=== PATIENT | female | born 1990 ===

== ENCOUNTER 2016-12-14 14:39 | Emergency (ER) | payer OTHER ==
[2016-12-14 14:53] VITALS: RESP 18
--- NOTE | 2016-12-14 15:34 | C.PDOC ---
History Of Present Illness 26-year-old female, presents to the emergency department with complaints of pelvic pain x3 days. Patient denies vaginal bleed, nausea/vomiting, or any other associated symptoms. No other complaints at this time. Time Seen by Provider: 12/14/16 15:03 Chief Complaint (Nursing): Abdominal Pain History Per: Patient History/Exam Limitations: no limitations Past Medical History Reviewed: Historical Data, Nursing Documentation, Vital Signs Vital Signs: Last Vital Signs Temp 97.9 F 12/14/16 14:51 Pulse 60 12/14/16 14:51 Resp 18 12/14/16 14:51 BP 119/72 12/14/16 14:51 Pulse Ox 99 12/14/16 19:16 Family History: States: Unknown Family Hx - Social History Hx Alcohol Use: No Hx Substance Use: No - Immunization History Hx Tetanus Toxoid Vaccination: No Hx Influenza Vaccination: No Hx Pneumococcal Vaccination: No Review Of Systems Except As Marked, All Systems Reviewed And Found Negative. Constitutional: Negative for: Fever, Chills Cardiovascular: Negative for: Chest Pain Respiratory: Negative for: Shortness of Breath Gastrointestinal: Positive for: Abdominal Pain. Negative for: Nausea, Vomiting Musculoskeletal: Negative for: Back Pain Skin: Negative for: Rash Neurological: Negative for: Weakness, Numbness Physical Exam - Physical Exam Appears: Non-toxic, No Acute Distress Skin: Normal Color, Warm, Dry Head: Atraumatic, Normacephalic Eye(s): bilateral: Normal Inspection, PERRL, EOMI Nose: Normal Neck: Normal ROM Cardiovascular: Rhythm Regular Respiratory: No Accessory Muscle Use Gastrointestinal/Abdominal: Soft, Tenderness (LEFT SIDED), No Guarding, No Rebound Back: Normal Inspection Extremity: Normal ROM ED Course And Treatment - Laboratory Results Result Diagrams: 12/14/16 17:01 12/14/16 17:01 O2 Sat by Pulse Oximetry: 99 - CT Scan/US US PELVIS Other Rad Studies (CT/US): Read By Radiologist, Radiology Report Reviewed Progress Note: Accession No. : [id number]. Patient Name / ID : CONNIE TAY / [id number]. Exam Date : 12/14/2016 18:27:16 ( Approved ). Study Comment : Sex / Age : F / 26Y. Creator : Tucker Shelton. Dictator : Tucker Shelton. Beet End Supervisor : Fat Purification Worker : Tucker Shetlon. Approver2 : Report Date : 12/14/2016 18:46:54. My Comment : . HISTORY: left pelvic pain. COMPARISON: Comparison is made to the previous CT of the abdomen and pelvis dated 09/11/2016. TECHNIQUE: Transabdominal and endovaginal ultrasound examination of the pelvis was performed. FINDINGS: UTERUS: Measures 7.2 x 3.4 x 3.7 cm. Normal in size and appearance. No fibroid or other mass lesion seen. Small nabothian cyst seen. ENDOMETRIUM: Measures 8.1 mm in diameter. Unremarkable. CERVIX: No cervical abnormality identified. The cervix measures 2.7. RIGHT OVARY: Measures 3.3 x 2.2 x 3.7 cm. No solid mass. Normal flow. LEFT OVARY: Measures 2.9 x 2.2 x 2.6 cm. No solid mass. Normal flow. FREE FLUID: No significant free fluid noted. OTHER FINDINGS: None. IMPRESSION: No evidence of acute pathology in the uterus and ovaries. Disposition - Disposition Referrals: [facility] at [facility] [Outside] [facility] [Outside] Disposition: HOME/ ROUTINE Disposition Time: 19:16 Condition: STABLE Additional Instructions: Follow up with PMD within 1-2 days. return to Ed if feel worse. Prescriptions: Ibuprofen [Motrin Tab] 600 mg PO Q8 #30 tab traMADol [Ultram] 50 mg PO Q6 #30 tab Instructions: Pelvic Pain in Women (ED) - Clinical Impression Clinical Impression: Pelvic pain - Scribe Statement The provider has reviewed the documentation as recorded by the Germaine Segundo All medical record entries made by the Evaibparish were at my direction and personally dictated by me. I have reviewed the chart and agree that the record accurately reflects my personal performance of the history, physical exam, medical decision making, and the department course for this patient. I have also personally directed, reviewed, and agree with the discharge instructions and disposition.
[2016-12-14 16:30] LABS: RBC URINE 1 /hpf (0-3); TRANSITIONAL EPITHIAL < 1 /hpf (0-3); URINE BACTERIA RARE (<OCC); URINE BILIRUBIN NEGATIVE (NEGATIVE); URINE BLOOD NEGATIVE (NEGATIVE); URINE COLOR Yellow (YELLOW); URINE GLUCOSE (UA) NORMAL (Normal); URINE KETONE NEGATIVE (NEGATIVE); URINE LEUKOCYTE ESTERASE NEG Leu/uL (Negative); URINE PROTEIN NEGATIVE (NEGATIVE); URINE UROBILINOGEN NORMAL mg/dL (0.2-1.0); WBC URINE 1 /hpf (0-5)
[2016-12-14 17:05] LABS: BASO % 0.8 % (0.0-2.0); EOS % 0.9 % (0.0-4.0); HEMATOCRIT 42.5 % (34.0-47.0); LYMPH % 42.2 % (20.0-40.0); MEAN CELL VOLUME 90.2 fL (81.0-99.0); MEAN CORPUSCULAR HEMOGLOBIN 30.4 pg (27.0-31.0); MEAN CORPUSCULAR HGB CONC 33.7 g/dL (33.0-37.0); MONO # 0.4 K/uL (0.0-0.8); MONO % 8.8 % (0.0-10.0); NRBC % 0.1 % (0.0-2.0); RED CELL DISTRIBUTION WIDTH 13.8 % (11.5-14.5); WHITE BLOOD COUNT 4.7 K/uL (4.8-10.8)
[2016-12-14 17:11] LABS: CHLORIDE 101 mmol/L (98-107)
[2016-12-14 17:12] LABS: POTASSIUM 3.9 mmol/L (3.6-5.2); SODIUM 139 mmol/L (132-148)
[2016-12-14 17:14] LABS: ALB/GLOB RATIO 1.2 (1.0-2.1); AST/SGOT 28 U/L (14-36); BILIRUBIN,TOTAL 0.6 mg/dL (0.2-1.3); BLOOD UREA NITROGEN 10 mg/dL (7-17); CARBON DIOXIDE 27 mmol/L (22-30); GFR AFRICAN-AMERICAN > 60; TOTAL PROTEIN 7.8 g/dL (6.3-8.3)
[2016-12-14 17:15] LABS: ALKALINE PHOSPHATASE 97 U/L (38-126); ALT/SGPT 33 U/L (9-52); CALCIUM 8.5 mg/dl (8.6-10.4); GLUCOSE,RANDOM 95 mg/dL (65-105)
--- NOTE | 2016-12-14 18:48 | US ---
HISTORY: left pelvic pain COMPARISON: Comparison is made to the previous CT of the abdomen and pelvis dated 09/11/2016 TECHNIQUE: Transabdominal and endovaginal ultrasound examination of the pelvis was performed. FINDINGS: UTERUS: Measures 7.2 x 3.4 x 3.7 cm. Normal in size and appearance. No fibroid or other mass lesion seen. Small nabothian cyst seen. ENDOMETRIUM: Measures 8.1 mm in diameter. Unremarkable. CERVIX: No cervical abnormality identified. The cervix measures 2.7 RIGHT OVARY: Measures 3.3 x 2.2 x 3.7 cm. No solid mass. Normal flow. LEFT OVARY: Measures 2.9 x 2.2 x 2.6 cm. No solid mass. Normal flow. FREE FLUID: No significant free fluid noted. OTHER FINDINGS: None. IMPRESSION: No evidence of acute pathology in the uterus and ovaries.
[2016-12-14 19:21] VITALS: BP 106/69; PULSE 59; TEMP 97.7
[2016-12-15 09:31] VITALS: O2SAT 99
== END 2016-12-14 19:21 | disposition home or self-care (01) ==
LOC: C.ER 14:39
DX: R10.2 Pelvic and perineal pain (principal)
CPT/HCPCS: 76830; 76856; 80053; 81001; 84703; 85025; 96374; 99285; J1885

== ENCOUNTER 2017-03-29 15:32 | Emergency (ER) | payer OTHER ==
[2017-03-29 15:37] VITALS: BP 111/74; PULSE 57; RESP 18; TEMP 97.9; O2SAT 99
[2017-03-29] MEDS ORDERED: Naproxen 550 mg Tab PO STA (16:03)
[2017-03-29] MEDS ORDERED: Naproxen 550 mg Tab PO ONE (16:06)
--- NOTE | 2017-03-29 16:26 | RAD ---
HISTORY: right sided chest/rib pain COMPARISON: None available. TECHNIQUE: Chest PA and lateral FINDINGS: LUNGS: No focal consolidation. Please note that chest x-ray has limited sensitivity for the detection of pulmonary masses. PLEURA: No significant pleural effusion identified. No definite pneumothorax . CARDIOVASCULAR: The cardiomediastinal silhouette appears within normal limits of size. OSSEOUS STRUCTURES: No acute osseous abnormality identified. VISUALIZED UPPER ABDOMEN: Unremarkable. OTHER FINDINGS: None. IMPRESSION: No focal consolidation, significant pleural effusion, or definite pneumothorax identified.
[2017-03-29 16:40] LABS: RBC URINE 2 /hpf (0-3); URINE BACTERIA RARE (<OCC); URINE BILIRUBIN NEGATIVE (NEGATIVE); URINE BLOOD NEGATIVE (NEGATIVE); URINE COLOR Yellow (YELLOW); URINE GLUCOSE (UA) NORMAL (Normal); URINE KETONE NEGATIVE (NEGATIVE); URINE LEUKOCYTE ESTERASE NEG Leu/uL (Negative); URINE PROTEIN NEGATIVE (NEGATIVE); URINE UROBILINOGEN NORMAL mg/dL (0.2-1.0); WBC URINE 1 /hpf (0-5)
--- NOTE | 2017-03-29 17:06 | C.PDOC ---
History Of Present Illness 26 year old female presents to the ED for evaluation of right sided lateral rib pain, which she describes as sharp. Pain is also pleuritic, worsens with deep breaths. She also reports left sided neck pain; states both her symptoms have been present for approximately for one month. She denies cough, fever, chest pain, shortness of breath, abdominal pain, dysuria/hematuria. Time Seen by Provider: 03/29/17 15:45 Chief Complaint (Nursing): Upper Extremity Problem/Injury History Per: Patient History/Exam Limitations: no limitations Onset/Duration Of Symptoms: Days Current Symptoms Are (Timing): Still Present Severity: Mild Past Medical History Reviewed: Historical Data, Nursing Documentation, Vital Signs Vital Signs: Last Vital Signs Temp 97.9 F 03/29/17 15:35 Pulse 57 L 03/29/17 15:35 Resp 18 03/29/17 15:35 BP 111/74 03/29/17 15:35 Pulse Ox 99 03/29/17 18:32 - Medical History PMH: No Chronic Diseases Surgical History: No Surg Hx Family History: States: No Known Family Hx - Social History Hx Alcohol Use: No Hx Substance Use: No - Immunization History Hx Tetanus Toxoid Vaccination: No Hx Influenza Vaccination: No Hx Pneumococcal Vaccination: No Review Of Systems Except As Marked, All Systems Reviewed And Found Negative. Constitutional: Negative for: Fever, Chills Cardiovascular: Positive for: Other (right sided lateral rib pain). Negative for: Chest Pain Respiratory: Negative for: Cough, Shortness of Breath Gastrointestinal: Negative for: Nausea, Vomiting, Abdominal Pain Musculoskeletal: Positive for: Neck Pain Skin: Negative for: Rash Physical Exam - Physical Exam Appears: Well, Non-toxic, No Acute Distress Skin: Other (speaking in full sentences) Oral Mucosa: Moist Neck: Other (tenderness to palpation of left lateral neck, along lower trapezius ) Cardiovascular: Rhythm Regular, Other (right lateral rib tenderness to palpation apprix ribs 5/6 level; no rash, no crepitus) Respiratory: Normal Breath Sounds, No Rales, No Rhonchi, No Wheezing Gastrointestinal/Abdominal: Normal Exam, Bowel Sounds, Soft, No Tenderness Back: Normal Inspection, No CVA Tenderness, No Vertebral Tenderness Extremity: Bilateral: Atraumatic, Normal Color And Temperature, Normal ROM Neurological/Psych: Oriented x3, Normal Motor, Normal Sensation Gait: Steady ED Course And Treatment O2 Sat by Pulse Oximetry: 99 (RA) Pulse Ox Interpretation: Normal - Radiology CXR: Interpreted by Me, Viewed By Me CXR Interpretation: Yes: No Acute Disease. No: Infiltrates Progress Note: UA, Upreg and CXR ordered and reviewed. Patient given PO Naprosyn and Flexeril. Reevaluation Time: 17:05 Reassessment Condition: Improved (Patient reassessed, is currently resting comfortably, states her pain has improved. CXR, UA, Upreg (-). Patient given Rx for Naprosyn and Flexeril, and instructed to follow up with PMD/clinic in 1- 2 days. She understands she should return to ED if symptoms worsen.) Disposition Counseled Patient/Family Regarding: Diagnosis, Need For Followup, Rx Given - Disposition Referrals: [facility] at [facility] [Outside] Disposition: HOME/ ROUTINE Disposition Time: 17:05 Condition: STABLE Additional Instructions: SEGUIMIENTO CON LA CLNICA MDICA EN 1-2 TEJEDA USE LOS MEDICAMENTOS QUE TIMOTHY NECESARIOS PARA EL DOLOR DEVUELVA A LA FRANDY DE EMERGENCIA SI LOS SNTOMAS EMPEORARAN Prescriptions: Naproxen [Naprosyn Tab] 375 mg PO BID PRN #20 tab PRN Reason: pain Instructions: Costochondritis (ED) Forms: [employer] (Maltese) Print Language: DANISH - POA Present On Arrival: None - Clinical Impression Clinical Impression: Costochondritis, acute - Scribe Statement The provider has reviewed the documentation as recorded by the Evaibparish Bolden Provider Attestation: Provider Attestation: All medical record entries made by the Scribe were at my direction and personally dictated by me. I have reviewed the chart and agree that the record accurately reflects my personal performance of the history, physical exam, medical decision making, and the department course for this patient. I have also personally directed, reviewed, and agree with the discharge instructions and disposition.
== END 2017-03-29 17:18 | disposition home or self-care (01) ==
LOC: C.ER 15:32
DX: M94.0 Chondrocostal junction syndrome [Tietze] (principal)

== ENCOUNTER 2017-04-19 17:58 | Emergency (ER) | payer OTHER ==
[2017-04-19 18:03] VITALS: BMI 30.9
[2017-04-19 18:04] VITALS: TEMP 98
--- NOTE | 2017-04-19 19:18 | C.PDOC ---
History Of Present Illness 26 yr old female presents to the ER stating today around 5:30pm she tripped and fell while waking down the stairs and twisted the right ankle. Patient states she is able to ambulate but has pain. Denies complete fall, leg pain, weakness or numbness. Time Seen by Provider: 04/19/17 18:17 Chief Complaint (Nursing): Lower Extremity Problem/Injury History Per: Patient History/Exam Limitations: no limitations Onset/Duration Of Symptoms: Hrs Past Medical History Reviewed: Historical Data, Nursing Documentation, Vital Signs Vital Signs: Last Vital Signs Temp 98 F 04/19/17 18:03 Pulse 78 04/19/17 20:16 Resp 16 04/19/17 20:16 BP 119/75 04/19/17 20:16 Pulse Ox 96 04/19/17 20:32 Family History: States: No Known Family Hx - Social History Hx Alcohol Use: No Hx Substance Use: No - Immunization History Hx Tetanus Toxoid Vaccination: No Hx Influenza Vaccination: No Hx Pneumococcal Vaccination: No Review Of Systems Except As Marked, All Systems Reviewed And Found Negative. Musculoskeletal: Positive for: Other ((+) Right ankle pain.). Negative for: Leg Pain Neurological: Negative for: Weakness, Numbness Physical Exam - Physical Exam Appears: Non-toxic, No Acute Distress Skin: Warm, Dry, No Rash Head: Atraumatic, Normacephalic Oral Mucosa: Moist Extremity: No Calf Tenderness, Capillary Refill (<2), Other (Right Ankle - Swelling to the inferior malleolus. Tenderness to the lateral tib/fib area.) Neurological/Psych: Oriented x3, Normal Speech, Normal Motor ED Course And Treatment O2 Sat by Pulse Oximetry: 96 (RA) Pulse Ox Interpretation: Normal Medical Decision Making Medical Decision Making: PLAN: * X-Ray - Right Tibia & Fibula, Right Ankle, Right Foot * Tylenol PO xrays are negative for acute fracture or dislocation. Air cast and crutches applied and patient was instructed to follow up with Ortho. Disposition - Disposition Referrals: Maritza Segundo MD [Staff Provider] - Disposition: HOME/ ROUTINE Disposition Time: 19:18 Condition: GOOD Additional Instructions: Follow up with the medical doctor within 1-2 days. Return if worsened. Prescriptions: Ibuprofen [Motrin] 600 mg PO TID #21 tab Instructions: Ankle Sprain (ED) Forms: [employer] (American), School Excuse - Clinical Impression Clinical Impression: Ankle sprain - PA / PL SQL PROGRAMMER / Resident Statement MD/DO has reviewed & agrees with the documentation as recorded. - Scribe Statement The provider has reviewed the documentation as recorded by the Scribe Mireya Mccann All medical record entries made by the Scribe were at my direction and personally dictated by me. I have reviewed the chart and agree that the record accurately reflects my personal performance of the history, physical exam, medical decision making, and the department course for this patient. I have also personally directed, reviewed, and agree with the discharge instructions and disposition.
[2017-04-19 20:17] VITALS: BP 119/75; PULSE 78; RESP 16
[2017-04-19 20:29] VITALS: O2SAT 96
--- NOTE | 2017-04-20 11:17 | RAD ---
PROCEDURE: Right Ankle Radiographs. HISTORY: ankle injury AND PAIN COMPARISON: None FINDINGS: BONES: Normal. No fracture. JOINTS: Normal. No osteoarthritis. Ankle mortise maintained. Talar dome intact SOFT TISSUES: Mild lateral malleolar soft tissue edema is identified. OTHER FINDINGS: None. IMPRESSION: No acute fracture dislocation. Mild right lateral malleolar soft tissue edema is identified.
--- NOTE | 2017-04-20 11:18 | RAD ---
PROCEDURE: Right Foot Radiographs. HISTORY: FOOT INJURY COMPARISON: None. FINDINGS: BONES: Normal. No fracture. JOINTS: Normal. SOFT TISSUES: Normal. OTHER FINDINGS: None. IMPRESSION: Normal right foot radiographs.
--- NOTE | 2017-04-20 11:18 | RAD ---
PROCEDURE: Radiographs of the right tibia and fibula. HISTORY: pain to mid tib/fib COMPARISON: None available. TECHNIQUE: Frontal and lateral views obtained. FINDINGS: BONES: No fracture or destructive lesion. JOINT SPACES: Unremarkable. OTHER FINDINGS: None. IMPRESSION: Unremarkable radiographs of the right tibia and fibula.
== END 2017-04-19 20:16 | disposition home or self-care (01) ==
LOC: C.ER 17:58
DX: S93.401A Sprain of unspecified ligament of right ankle, initial encounter (principal); W10.8XXA Fall (on) (from) other stairs and steps, initial encounter; Y93.89 Activity, other specified; Y92.89 Other specified places as the place of occurrence of the external cause

== ENCOUNTER 2017-05-07 13:09 | Emergency (ER) | payer OTHER ==
[2017-05-07 13:09] VITALS: BMI 30.9
[2017-05-07 13:14] VITALS: PULSE 66; TEMP 98.5
[2017-05-07 13:47] LABS: RBC URINE < 1 /hpf (0-3); URINE BILIRUBIN NEGATIVE (NEGATIVE); URINE BLOOD NEGATIVE (NEGATIVE); URINE COLOR Yellow (YELLOW); URINE GLUCOSE (UA) NORMAL (Normal); URINE KETONE NEGATIVE (NEGATIVE); URINE LEUKOCYTE ESTERASE NEG Leu/uL (Negative); URINE PROTEIN NEGATIVE (NEGATIVE); URINE UROBILINOGEN NORMAL mg/dL (0.2-1.0); WBC URINE 1 /hpf (0-5)
[2017-05-07] MEDS ORDERED: cefTRIAXone (Rocephin) 250 mg Inj IM STA (14:16)
--- NOTE | 2017-05-07 14:32 | C.PDOC ---
Time Seen by Provider: 05/07/17 13:18 Chief Complaint (Nursing): Abdominal Pain History Per: Patient Onset/Duration Of Symptoms: Days (around 5), Waxing/Waning Current Symptoms Are (Timing): Still Present Severity: Moderate Location Of Pain/Discomfort: Suprapubic Quality Of Discomfort: Unable To Describe, "Pain" Associated Symptoms: Other (Vaginal discharge) Alleviating Factors: None Additional History Per: Prior Records Last Menstral Period: February 2017 Past Medical History Reviewed: Historical Data, Nursing Documentation, Vital Signs Vital Signs: Last Vital Signs Temp 98.5 F 05/07/17 13:12 Pulse 66 05/07/17 13:12 Resp 20 05/07/17 13:12 BP 122/79 05/07/17 13:12 Pulse Ox 98 05/07/17 13:12 - Medical History PMH: No Chronic Diseases Family History: States: Unknown Family Hx - Social History Hx Alcohol Use: No Hx Substance Use: No - Immunization History Hx Tetanus Toxoid Vaccination: No Hx Influenza Vaccination: No Hx Pneumococcal Vaccination: No Review Of Systems Except As Marked, All Systems Reviewed And Found Negative. Constitutional: Negative for: Fever, Weakness Cardiovascular: Negative for: Chest Pain Respiratory: Negative for: Shortness of Breath Gastrointestinal: Negative for: Vomiting, Diarrhea Genitourinary: Positive for: Vaginal Discharge, Pelvic Pain. Negative for: Dysuria Musculoskeletal: Negative for: Neck Pain, Back Pain Skin: Negative for: Rash Neurological: Negative for: Weakness, Numbness Physical Exam - Physical Exam Appears: Non-toxic, No Acute Distress Skin: Normal Color, Warm, Dry, No Rash Head: Atraumatic, Normacephalic Eye(s): bilateral: Normal Inspection, PERRL, EOMI Oral Mucosa: Moist Neck: Normal ROM, Supple Cardiovascular: Rhythm Regular Respiratory: Normal Breath Sounds, No Accessory Muscle Use Gastrointestinal/Abdominal: Soft, Tenderness (mild suprapubic), No Guarding, No Rebound Back: No CVA Tenderness Pelvic: No Vaginal Bleeding, Cervical Motion Tenderness, Adnexal Tenderness, Tender Uterus, Other (Friable cervix) Extremity: Normal ROM Neurological/Psych: Oriented x3, Normal Motor, Normal Sensation ED Course And Treatment - Laboratory Results Urine POC: Negative O2 Sat by Pulse Oximetry: 98 Pulse Ox Interpretation: Normal Reassessment Condition: Improved Disposition Counseled Patient/Family Regarding: Studies Performed, Diagnosis, Need For Followup, Rx Given - Disposition Referrals: [facility] [Outside] Disposition: HOME/ ROUTINE Disposition Time: 14:32 Condition: STABLE Additional Instructions: Drink plenty of fluids. Follow up with a Sales And Leasing Consultant within 1 week for further evaluation and treatment. Return to the ER if you develop fever, vomiting, worsening of symptoms or if you have any other concerns. Prescriptions: Doxycycline Hyclate 100 mg PO BID #28 capsule Instructions: Pelvic Inflammatory Disease (ED) Forms: [email or web address] (Polish) Print Language: ROMANSH - Clinical Impression Clinical Impression: PID (pelvic inflammatory disease)
[2017-05-07 14:58] VITALS: BP 116/79; RESP 16; O2SAT 100
== END 2017-05-07 14:58 | disposition home or self-care (01) ==
LOC: C.ER 13:09
DX: N73.9 Female pelvic inflammatory disease, unspecified (principal)
CPT/HCPCS: 81001; 84703; 87491; 87591; 96372; 99285; J0696

== ENCOUNTER 2017-05-30 10:03 | Emergency (ER) | payer OTHER ==
[2017-05-30 10:04] VITALS: BMI 30.9
[2017-05-30 10:07] VITALS: TEMP 98
--- NOTE | 2017-05-30 10:27 | C.PDOC ---
History Of Present Illness 26 y/o female presents to ED with complaints of persistent pain and occasional swelling to right ankle for 1.5 months. Patient seen on 04/19/17 for right ankle sprain and had xray of foot, ankle and TIB FIB all negative. Pain is localized to lateral malleolus worse with weight bearing. Patient reports n MD follow up since injury and denies new injury since prior ER evaluation. No other complaints at this time. PERSIST PAIN, OCC SWELLING R ANKLE X 1.5 MONTHS. seen 04/19/17 FOR R ANKLE SPRAIN, XRAY FOOT, ANKLE, TIB FIB NEG. PAIN LOCALIZED LAT MALL, WORSE W WT BEAR. NO MD FU SINCE INJURY. DENIES NEW INJURY SINCE PRIOR ER EVAL. EXAM NAD EXT R ANKLE MILD LAT MALL AREA SWELL NONFOCAL NO DEFORM. WT BEAR WO DIFF SKIN NEG, WNL MDM AIR CAST, ADVISED FU PODIATRY/CLINIC Time Seen by Provider: 05/30/17 10:17 Chief Complaint (Nursing): Lower Extremity Problem/Injury History Per: Patient History/Exam Limitations: no limitations Onset/Duration Of Symptoms: Days Current Symptoms Are (Timing): Still Present Past Medical History Reviewed: Historical Data, Nursing Documentation, Vital Signs Vital Signs: Last Vital Signs Temp 98 F 05/30/17 10:06 Pulse 72 05/30/17 10:52 Resp 18 05/30/17 10:52 BP 119/65 05/30/17 10:52 Pulse Ox 98 05/30/17 10:52 - Medical History PMH: No Chronic Diseases Surgical History: No Surg Hx Family History: States: No Known Family Hx - Social History Hx Alcohol Use: No Hx Substance Use: No - Immunization History Hx Tetanus Toxoid Vaccination: No Hx Influenza Vaccination: No Hx Pneumococcal Vaccination: No Review Of Systems Musculoskeletal: Positive for: Foot Pain. Negative for: Back Pain, Leg Pain Skin: Negative for: Rash Neurological: Negative for: Weakness, Numbness Physical Exam - Physical Exam Appears: No Acute Distress Skin: Warm, Dry, No Rash Head: Normacephalic Oral Mucosa: Moist Neck: Normal ROM, Supple Extremity: Capillary Refill (<2 seconds), No Deformity, Swelling (Mild to right lateral malleolus area) Extremity: Bilateral: Normal ROM Pulses: Left Dorsalis Pedis: Normal, Right Dorsalis Pedis: Normal Neurological/Psych: Oriented x3, Normal Motor, Normal Sensation ED Course And Treatment O2 Sat by Pulse Oximetry: 99 (RA) Pulse Ox Interpretation: Normal Progress - Data Reviewed Data Reviewed: Old records Medical Decision Making Medical Decision Making: Air cast applied Patient advised to follow up with Podiatry/Clinic Disposition Counseled Patient/Family Regarding: Diagnosis, Need For Followup - Disposition Referrals: Clinic,Med Surg [Primary Care Provider] - [facility] [Outside] Podiatry Clinic [Outside] Disposition: HOME/ ROUTINE Disposition Time: 10:34 Condition: IMPROVED Instructions: Arthralgia (ED) Forms: [employer] (Ivorian), Work Excuse Print Language: MONGOLIAN - Clinical Impression Clinical Impression: Chronic ankle pain - Scribe Statement The provider has reviewed the documentation as recorded by the Scribe Gardenia London All medical record entries made by the Evaibparish were at my direction and personally dictated by me. I have reviewed the chart and agree that the record accurately reflects my personal performance of the history, physical exam, medical decision making, and the department course for this patient. I have also personally directed, reviewed, and agree with the discharge instructions and disposition. Orthopedic Care Application Of:: Ankle Air Cast
[2017-05-30 10:54] VITALS: BP 119/65; PULSE 72; RESP 18
[2017-05-30 11:19] VITALS: O2SAT 99
== END 2017-05-30 10:54 | disposition home or self-care (01) ==
LOC: C.ER 10:03 → SUPCPDRO 10:03 → C.ER 10:54
DX: G89.29 Other chronic pain (principal); M25.571 Pain in right ankle and joints of right foot

== ENCOUNTER 2017-10-03 11:52 | Emergency (ER) | payer OTHER ==
[2017-10-03 11:53] VITALS: BMI 30.9
[2017-10-03 12:34] VITALS: TEMP 97.9
[2017-10-03 14:00] LABS: HCG,QUALITATIVE URINE NEGATIVE (NEGATIVE)
[2017-10-03 14:00] LABS: BASO % 0.8 % (0.0-2.0); EOS # 0.1 K/uL (0.0-0.7); HEMOGLOBIN 14.3 g/dL (11.0-16.0); LYMPH # 2.2 K/uL (1.0-4.3); LYMPH % 49.3 % (20.0-40.0); MEAN CELL VOLUME 89.7 fL (81.0-99.0); MEAN CORPUSCULAR HEMOGLOBIN 30.6 pg (27.0-31.0); MEAN CORPUSCULAR HGB CONC 34.1 g/dL (33.0-37.0); MEAN PLATELET VOLUME 10.7 fL (7.2-11.7); MONO # 0.5 K/uL (0.0-0.8); MONO % 10.3 % (0.0-10.0); NEUT # 1.6 K/uL (1.8-7.0); NEUT % 37.6 % (50.0-75.0); NRBC % 0.1 % (0.0-2.0); RBC 4.69 Mil/uL (3.80-5.20); RED CELL DISTRIBUTION WIDTH 13.1 % (11.5-14.5); WHITE BLOOD COUNT 4.4 K/uL (4.8-10.8)
[2017-10-03 14:04] LABS: SQUAMOUS EPITHIAL 2 /hpf (0-5); URINE BILIRUBIN NEGATIVE (NEGATIVE); URINE BLOOD NEGATIVE (NEGATIVE); URINE CLARITY Clear (Clear); URINE COLOR Yellow (YELLOW); URINE GLUCOSE (UA) NORMAL (Normal); URINE LEUKOCYTE ESTERASE NEG Leu/uL (Negative); URINE NITRATE NEGATIVE (NEGATIVE); URINE PROTEIN NEGATIVE (NEGATIVE); URINE UROBILINOGEN NORMAL mg/dL (0.2-1.0)
[2017-10-03 14:08] LABS: PROTHROMBIN TIME 11.6 SECONDS (9.7-12.2)
[2017-10-03 14:16] LABS: ALB/GLOB RATIO 1.2 (1.0-2.1); ALBUMIN 4.1 g/dL (3.5-5.0); ALT/SGPT 36 U/L (9-52); AST/SGOT 30 U/L (14-36); BLOOD UREA NITROGEN 9 mg/dL (7-17); CALCIUM 9.6 mg/dl (8.6-10.4); GFR AFRICAN-AMERICAN > 60; GFR NON-AFRICAN AMERICAN > 60
--- NOTE | 2017-10-03 14:48 | C.PDOC ---
History Of Present Illness 27 y/o female presents to the ER complaining of SOB, generalized weakness, and mild nausea which has been present for the past 2 days. Patient reports that she also has irregular menstruation. Patient denies vomiting and diarrhea. Time Seen by Provider: 10/03/17 12:56 Chief Complaint (Nursing): Dizziness/Lightheaded History Per: Patient History/Exam Limitations: no limitations Onset/Duration Of Symptoms: Days Current Symptoms Are (Timing): Still Present Severity: Moderate Past Medical History Reviewed: Historical Data, Nursing Documentation, Vital Signs Vital Signs: Last Vital Signs Temp 97.9 F 10/03/17 12:30 Pulse 52 L 10/03/17 17:00 Resp 18 10/03/17 17:00 BP 113/62 10/03/17 17:00 Pulse Ox 97 10/03/17 17:55 - Medical History PMH: No Chronic Diseases Other Surgeries: Hx of surgeries Family History: States: No Known Family Hx - Social History Hx Alcohol Use: No Hx Substance Use: No - Immunization History Hx Tetanus Toxoid Vaccination: No Hx Influenza Vaccination: No Hx Pneumococcal Vaccination: Yes Review Of Systems Except As Marked, All Systems Reviewed And Found Negative. Constitutional: Positive for: Weakness. Negative for: Fever, Chills Respiratory: Positive for: Shortness of Breath Gastrointestinal: Positive for: Nausea. Negative for: Vomiting, Diarrhea Physical Exam - Physical Exam Appears: Non-toxic, No Acute Distress Skin: Normal Color, Warm Head: Atraumatic, Normacephalic Eye(s): bilateral: Normal Inspection Nose: Normal Oral Mucosa: Moist Neck: Supple Chest: Symmetrical Cardiovascular: Rhythm Regular Respiratory: Normal Breath Sounds, No Accessory Muscle Use, No Rales, No Rhonchi , No Wheezing Gastrointestinal/Abdominal: Normal Exam, Soft, No Tenderness Extremity: Normal ROM Neurological/Psych: Oriented x3, Normal Speech, Normal Motor, Normal Sensation ED Course And Treatment - Laboratory Results Result Diagrams: 10/03/17 13:51 10/03/17 13:51 O2 Sat by Pulse Oximetry: 97 (RA) Pulse Ox Interpretation: Normal - Radiology CXR: Interpreted by Me CXR Interpretation: Yes: No Acute Disease - CT Scan/US VQ scan Other Rad Studies (CT/US): Read By Radiologist, Radiology Report Reviewed CT/US Interpretation: Accession No. : [id number]. Patient Name / ID : CONNIE TAY / [id number]. Exam Date : 10/03/2017 15:38:59 ( Approved ). Study Comment : Sex / Age : F / 27Y. Creator : Micheal Elmore MD. Dictator : Micheal Elmore MD. Brown Stock Washer : Beet Flumer : Micheal Elmore MD. Approver2 : Report Date : 10/03/2017 16:20:12. My Comment : . COMPARISON: October 03, 2017. TECHNIQUE: 9.0 mCi technetium 99-m Xe-133 Gas. 3.4 mCI technetium 99-m MAA administered intravenously. FINDINGS: VENTILATION COMPONENT: Normal. PERFUSION COMPONENT : Heterogeneous distribution of radionuclide. No geographic, segmental, lobar abnormalities apparent on the present examination. IMPRESSION: Low probability ventilation perfusion scan for pulmonary embolism. Head CT Other Rad Studies (CT/US): Read By Radiologist, Radiology Report Reviewed CT/US Interpretation: Accession No. : [id number]. Patient Name / ID : CONNIE TAY / [id number]. Exam Date : 10/03/2017 16:16:07 ( Approved ). Study Comment : Sex / Age : F / 27Y. Creator : Kaylah Salgado. Dictator : Aundrea De Jesus MD. Brown Stock Washer : Beet Flumer : Aundrea De Jesus MD. Approver2 : Report Date : 10/03/2017 16:23:10. My Comment : . PROCEDURE: CT HEAD WITHOUT CONTRAST. HISTORY: headache/weakness. COMPARISON: None available. TECHNIQUE: Axial computed tomography images were obtained through the head/brain without intravenous contrast. Radiation dose: Total exam DLP = 825.00 mGy-cm. This CT exam was performed using one or more of the following dose reduction techniques: Automated exposure control, adjustment of the mA and/or kV according to patient size, and/or use of iterative reconstruction technique. FINDINGS: HEMORRHAGE: No intracranial hemorrhage. BRAIN: No mass effect or edema. No atrophy or chronic microvascular ischemic changes. VENTRICLES: No hydrocephalus. CALVARIUM: Unremarkable. PARANASAL SINUSES: Unremarkable as visualized. No significant inflammatory changes. MASTOID AIR CELLS: Unremarkable as visualized. No inflammatory changes. OTHER FINDINGS: None. IMPRESSION: No acute intracranial pathology identified. Progress Note: Labs ordered. D-Dimer levels found to be high. VQ scan was ordered to rule out PE. Head CT was negative. On re-evaluation patient feels better and is stable to be d/c home. Disposition - Disposition Disposition: HOME/ ROUTINE Disposition Time: 17:53 Condition: STABLE Additional Instructions: Follow up with PMD within 1-2 days. Return to ED if feel worse. 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 - Scribe Statement The provider has reviewed the documentation as recorded by the Germaine Sanford Provider Attestation All medical record entries made by the Germaine were at my direction and personally dictated by me. I have reviewed the chart and agree that the record accurately reflects my personal performance of the history, physical exam, medical decision making, and the department course for this patient. I have also personally directed, reviewed, and agree with the discharge instructions and disposition.
[2017-10-03 14:54] VITALS: PULSE 52
[2017-10-03] MEDS ORDERED: Sodium Chloride 0.9% 1,000 ML IV STA (15:40)
--- NOTE | 2017-10-03 16:21 | NM ---
COMPARISON: October 03, 2017. TECHNIQUE: 9.0 mCi technetium 99-m Xe-133 Gas. 3.4 mCI technetium 99-m MAA administered intravenously. FINDINGS: VENTILATION COMPONENT: Normal. PERFUSION COMPONENT: Heterogeneous distribution of radionuclide. No geographic, segmental, lobar abnormalities apparent on the present examination. IMPRESSION: Low probability ventilation perfusion scan for pulmonary embolism.
--- NOTE | 2017-10-03 16:26 | RAD ---
HISTORY: COMPARISON: 03/29/2017. TECHNIQUE: Chest PA and lateral FINDINGS: LINES AND TUBES: None. LUNG AND PLEURA: The lungs are well inflated and clear. HEART AND MEDIASTINUM: The heart is not enlarged. The hilar and mediastinal contours are within normal limits. SKELETAL STRUCTURES: The bony structures are within normal limits for the patient's age. VISUALIZED UPPER ABDOMEN: Normal. OTHER FINDINGS: None. IMPRESSION: No active pulmonary disease.
--- NOTE | 2017-10-03 16:29 | CT ---
PROCEDURE: CT HEAD WITHOUT CONTRAST. HISTORY: headache/weakness COMPARISON: None available. TECHNIQUE: Axial computed tomography images were obtained through the head/brain without intravenous contrast. Radiation dose: Total exam DLP = 825.00 mGy-cm. This CT exam was performed using one or more of the following dose reduction techniques: Automated exposure control, adjustment of the mA and/or kV according to patient size, and/or use of iterative reconstruction technique. FINDINGS: HEMORRHAGE: No intracranial hemorrhage. BRAIN: No mass effect or edema. No atrophy or chronic microvascular ischemic changes. VENTRICLES: No hydrocephalus. CALVARIUM: Unremarkable. PARANASAL SINUSES: Unremarkable as visualized. No significant inflammatory changes. MASTOID AIR CELLS: Unremarkable as visualized. No inflammatory changes. OTHER FINDINGS: None. IMPRESSION: No acute intracranial pathology identified.
[2017-10-03 17:03] VITALS: BP 113/62; RESP 18
[2017-10-03 17:55] VITALS: O2SAT 97
== END 2017-10-03 18:06 | disposition home or self-care (01) ==
LOC: C.ER 11:52
DX: R42 Dizziness and giddiness (principal); R06.02 Shortness of breath
CPT/HCPCS: 70450; 71046; 78582; 80053; 81001; 84703; 85025; 85378; 85610; 85730; 96360; 99285; A9524; A9558; J7040

== ENCOUNTER 2018-06-26 13:12 | Emergency (ER) | payer OTHER ==
[2018-06-26 13:12] VITALS: BMI 30.9
[2018-06-26] MEDS ORDERED: Sodium Chloride 0.9% 1,000 ML IV ONE (14:19)
--- NOTE | 2018-06-26 14:35 | C.PDOC ---
History Of Present Illness 28 y/o female with a PMHx of migraines, presents to the ED complaining of a headache for the past 2 days. Associated with some blurry vision and pain behind the left eye, which she states is typical for her migraines. She did not take any medications for symptom relief prior to arrival. Otherwise she denies any fevers, chills, neck pain/stiffness, nausea, vomiting, focal weakness, numbness, or change in speech. Time Seen by Provider: 06/26/18 14:05 Chief Complaint (Nursing): Headache History Per: Patient History/Exam Limitations: no limitations Onset/Duration Of Symptoms: Days Current Symptoms Are (Timing): Still Present Severity: Mild Pain Scale Rating Of: 3 Quality: Sharp Preceeding Symptoms: None Past Medical History Reviewed: Historical Data, Nursing Documentation, Vital Signs Vital Signs: Last Vital Signs Temp 98.5 F 06/26/18 13:42 Pulse 89 06/26/18 13:42 Resp 20 06/26/18 13:42 BP 123/73 06/26/18 13:42 Pulse Ox 97 06/26/18 13:42 - Medical History PMH: Migraine Family History: States: Unknown Family Hx - Social History Hx Alcohol Use: No Hx Substance Use: No - Immunization History Hx Tetanus Toxoid Vaccination: No Hx Influenza Vaccination: No Hx Pneumococcal Vaccination: Yes Review Of Systems Except As Marked, All Systems Reviewed And Found Negative. Constitutional: Negative for: Fever, Chills Eyes: Positive for: Pain (left eye), Vision Change (blurry vision, left eye) Cardiovascular: Negative for: Chest Pain Respiratory: Negative for: Shortness of Breath Gastrointestinal: Negative for: Nausea, Vomiting, Abdominal Pain Musculoskeletal: Negative for: Neck Pain Neurological: Positive for: Headache. Negative for: Weakness, Numbness, Change in Speech, Confusion, Dizziness Physical Exam - Physical Exam Appears: Non-toxic, No Acute Distress Skin: Normal Color, Warm, Dry Head: Atraumatic, Normacephalic Eye(s): bilateral: Normal Inspection, PERRL, EOMI Oral Mucosa: Moist Neck: Normal ROM, No Midline Cervical Tenderness, Supple, Other (No meningeal signs) Chest: Symmetrical Cardiovascular: Rhythm Regular, No Murmur Respiratory: Normal Breath Sounds, No Accessory Muscle Use Gastrointestinal/Abdominal: Soft, No Tenderness, No Distention Extremity: Normal ROM, No Calf Tenderness, No Swelling Pulses: Left Dorsalis Pedis: Normal, Right Dorsalis Pedis: Normal Neurological/Psych: Oriented x3, Normal Speech, Normal Cranial Nerves, Cerebellar Signs (negative), Normal Motor, Normal Sensation, Other (Neurologically intact, no deficits) Gait: Steady ED Course And Treatment - Laboratory Results Result Diagrams: 06/26/18 14:52 06/26/18 14:52 Lab Interpretation: Normal Urine POC: Negative O2 Sat by Pulse Oximetry: 97 (RA) Pulse Ox Interpretation: Normal - CT Scan/US No standard instances Other Rad Studies (CT/US): Read By Radiologist, Radiology Report Reviewed CT/US Interpretation: HISTORY: R/O hemorrhage in a patient complaining of headache and dizziness. COMPARISON: Comparison made with prior CT scan brain dated 10/03/2017. TECHNIQUE: Axial computed tomography images were obtained through the head/brain without intravenous contrast. Radiation dose: Total exam DLP = 1107.99 mGy-cm. This CT exam was performed using one or more of the following dose reduction techniques: Automated exposure control, adjustment of the mA and/or kV according to patient size, and/or use of iterative reconstruction technique. FINDINGS: HEMORRHAGE: No acute parenchymal, subarachnoid or extra-axial hemorrhage. BRAIN: No evidence of large acute infarct. No obvious parenchymal nor extra-axial mass or collection seen on this noncontrast study.. Ventricular and sulcal size are within range of normal for this patient's stated age. VENTRICLES: Unremarkable. No hydrocephalus. CALVARIUM: Unre no acute calvarial fractures. PARANASAL SINUSES: Unremarkable as visualized. No significant inflammatory changes. MASTOID AIR CELLS: Unremarkable as visualized. No inflammatory changes. OTHER FINDINGS: None. IMPRESSION: No acute intracranial hemorrhage. Progress Note: Treated with IVF NSS, reglan and toradol. 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 - Scribe Statement The provider has reviewed the documentation as recorded by the Scribe (Lillian White) All medical record entries made by the Scribe were at my direction and personally dictated by me. I have reviewed the chart and agree that the record accurately reflects my personal performance of the history, physical exam, medic al decision making, and the department course for this patient. I have also personally directed, reviewed, and agree with the discharge instructions and disposition.
[2018-06-26 14:56] LABS: BASO % 1.1 % (0.0-2.0); EOS # 0.1 K/uL (0.0-0.7); EOS % 3.1 % (0.0-4.0); LYMPH # 1.9 K/uL (1.0-4.3); LYMPH % 42.4 % (20.0-40.0); MEAN CELL VOLUME 89.2 fL (81.0-99.0); MEAN CORPUSCULAR HEMOGLOBIN 30.8 pg (27.0-31.0); MEAN CORPUSCULAR HGB CONC 34.5 g/dL (33.0-37.0); MEAN PLATELET VOLUME 10.3 fL (7.2-11.7); MONO # 0.5 K/uL (0.0-0.8); MONO % 11.6 % (0.0-10.0); NEUT # 1.9 K/uL (1.8-7.0); NEUT % 41.8 % (50.0-75.0); RBC 4.24 Mil/uL (3.80-5.20); RED CELL DISTRIBUTION WIDTH 13.4 % (11.5-14.5); WHITE BLOOD COUNT 4.5 K/uL (4.8-10.8)
[2018-06-26] MEDS ORDERED: Sodium Chloride 0.9% 1,000 ML ONE (15:05)
[2018-06-26 15:08] LABS: ALB/GLOB RATIO 1.3 (1.0-2.1); ALBUMIN 4.3 g/dL (3.5-5.0); ALT/SGPT 34 U/L (9-52); AST/SGOT 25 U/L (14-36); BLOOD UREA NITROGEN 12 mg/dL (7-17); CALCIUM 9.1 mg/dl (8.6-10.4); GFR NON-AFRICAN AMERICAN > 60
--- NOTE | 2018-06-26 15:52 | CT ---
Date of service: 06/26/2018. PROCEDURE: CT HEAD WITHOUT CONTRAST. HISTORY: R/O hemorrhage in a patient complaining of headache and dizziness COMPARISON: Comparison made with prior CT scan brain dated 10/03/2017. TECHNIQUE: Axial computed tomography images were obtained through the head/brain without intravenous contrast. Radiation dose: Total exam DLP = 1107.99 mGy-cm. This CT exam was performed using one or more of the following dose reduction techniques: Automated exposure control, adjustment of the mA and/or kV according to patient size, and/or use of iterative reconstruction technique. FINDINGS: HEMORRHAGE: No acute parenchymal, subarachnoid or extra-axial hemorrhage. BRAIN: No evidence of large acute infarct. No obvious parenchymal nor extra-axial mass or collection seen on this noncontrast study.. Ventricular and sulcal size are within range of normal for this patient's stated age VENTRICLES: Unremarkable. No hydrocephalus. CALVARIUM: Unre no acute calvarial fractures. PARANASAL SINUSES: Unremarkable as visualized. No significant inflammatory changes. MASTOID AIR CELLS: Unremarkable as visualized. No inflammatory changes. OTHER FINDINGS: None. IMPRESSION: No acute intracranial hemorrhage.
[2018-06-26 16:17] LABS: HCG,QUALITATIVE URINE NEGATIVE (NEGATIVE)
[2018-06-26 16:23] LABS: SQUAMOUS EPITHIAL 3 /hpf (0-5); URINE BILIRUBIN NEGATIVE (NEGATIVE); URINE BLOOD NEGATIVE (NEGATIVE); URINE CLARITY Clear (Clear); URINE COLOR Yellow (YELLOW); URINE GLUCOSE (UA) NORMAL (Normal); URINE LEUKOCYTE ESTERASE NEG Leu/uL (Negative); URINE PROTEIN NEGATIVE (NEGATIVE); URINE UROBILINOGEN NORMAL mg/dL (0.2-1.0)
[2018-06-26 16:54] VITALS: BP 112/75; PULSE 63; RESP 18; TEMP 98.1; O2SAT 99
== END 2018-06-26 17:17 | disposition home or self-care (01) ==
LOC: C.ER 13:12
DX: G43.909 Migraine, unspecified, not intractable, without status migrainosus (principal)
CPT/HCPCS: 70450; 80053; 81001; 84703; 85025; 96361; 96374; 96375; 99285; J1885; J2765; J7030

== ENCOUNTER 2018-12-19 11:26 | Emergency (ER) | payer OTHER | END 2018-12-19 13:24 | disposition home or self-care (01) | LOC: C.ER 11:26 | DX: J02.9 Acute pharyngitis, unspecified (principal) ==

== ENCOUNTER 2019-01-08 09:34 | Outpatient (CLI) | payer OTHER | END 2019-01-08 09:35 | disposition home or self-care (01) | LOC: C.LAB 09:34 | DX: E03.9 Hypothyroidism, unspecified (principal); E23.6 Other disorders of pituitary gland; E28.1 Androgen excess ==

== ENCOUNTER 2019-01-13 11:00 | Outpatient (CLI) | payer OTHER | END 2019-01-13 11:01 | disposition home or self-care (01) | LOC: C.USIC 11:00 | DX: E03.9 Hypothyroidism, unspecified (principal) ==